=== PATIENT | male | born 1980 | race Caucasian/White ===

== ENCOUNTER 2016-07-11 10:27 | Emergency (ER) | payer SELFPAY ==
[~2016-07-11] VITALS: Ht 185.4 cm; Wt 90.0 kg
[~2016-07-11 10:27] MED LIST: BENT20TA PO; CYCL-36 PO; IBUP800T23 PO; PERC5TAB12 PO; PRED50 PO; PROM25TA5 PO
[2016-07-11 10:28] VITALS: BP 135/74; PULSE 118; RESP 20; TEMP 98.7; O2SAT 100
[2016-07-11] MEDS ORDERED: HYDR-3580 PO (12:45)
[2016-07-11] MEDS ORDERED: LIDOCAINE 1%/EPINEPHrine 1:100,000 SOLN 20 ML VIAL INFIL ONE (13:00)
[2016-07-11] MEDS ORDERED: VANCOMYCIN INJ 1,000 MG in SODIUM CHLOR 0.9% 250 ML INJ 250 ML IV ONE (13:00)
--- NOTE | 2016-07-11 13:14 | PD ---
HPI Chief Complaint: Skin Problem Time Seen by Provider: 12:42 Travel History International Travel<30 days: No Contact w/Intl Traveler<30days: No Traveled to known affect area: No History of Present Illness HPI He complains of an infection in his right arm. Duration 3 days. Symptoms are moderately severe. He has a large abscess there. He denies injecting that site. He has history of heroin abuse but says he hasn't used in 6 months. Denies active drainage or fever. No alleviating factors. PFSH Past Medical History Tetanus Vaccination: < 5 Years Past Surgical History Eye Surgery: Yes (right eye) Social History Alcohol Use: Yes Tobacco Use: Yes (1 ppd) Substance Use: No (denies, did have hx of) Allergies-Medications (Allergen,Severity, Reaction): Coded Allergies: No Known Allergies (Unverified , 03/19/16) Reported Meds & Prescriptions Reported Meds & Active Scripts Active Clindamycin (Clindamycin HCl) 150 Mg Cap 300 Mg PO Q6H Bactrim DS (Sulfamethoxazole-Trimethoprim) 800-160 Mg Tab 1 Tab PO BID Reported Hydrocodone-Acetaminophen 7.5-325 mg Tab 1 Tab PO DAILY PRN Review of Systems General / Constitutional: No: Fever Eyes: No: Visual changes HENT: No: Headaches Cardiovascular: No: Chest Pain or Discomfort Respiratory: No: Shortness of Breath Gastrointestinal: No: Abdominal Pain Genitourinary: No: Dysuria Musculoskeletal: Positive: Limited ROM, Pain Skin: No Rash Neurologic: No: Weakness Psychiatric: No: Depression Endocrine: No: Polydipsia Hematologic/Lymphatic: No: Easy Bruising Physical Exam Narrative GENERAL: Well-nourished, well-developed patient with right arm infection. SKIN: Focused skin assessment reveals no rash and nodules. Skin is Warm and dry. HEAD: Atraumatic. Normocephalic. EYES: Pupils equal and round. No scleral icterus. No injection or drainage. ENT: No nasal bleeding or discharge. Mucous membranes pink and moist. NECK: Trachea midline. No JVD. CARDIOVASCULAR: Regular rate and rhythm. No murmur appreciated. RESPIRATORY: No accessory muscle use. Clear to auscultation. Breath sounds equal bilaterally. GASTROINTESTINAL: Abdomen soft, non-tender, nondistended. Hepatic and splenic margins not palpable. MUSCULOSKELETAL: No obvious deformities. No clubbing. No cyanosis. No edema. He has a large abscess in the right antecubital fossa. It's warm and red and tender and appears fluctuant. NEUROLOGICAL: Awake and alert. No obvious cranial nerve deficits. Motor grossly within normal limits. Normal speech. PSYCHIATRIC: Appropriate mood and affect; insight and judgment normal. Data Data Last Documented VS Vital Signs Date Time Temp Pulse Resp B/P Pulse Ox O2 Delivery O2 Flow Rate FiO2 07/11/16 10:28 98.7 118 20 135/74 100 Room Air Orders Lidocai-Epi 1%-1:100,000 Inj (Xylocaine- (07/11/16 13:00) Iv Access Insert/Monitor (07/11/16 12:53) Complete Blood Count With Diff (07/11/16 12:53) Basic Metabolic Panel (Bmp) (07/11/16 12:53) Prothrombin Time / Inr (Pt) (07/11/16 12:53) Act Partial Throm Time (Ptt) (07/11/16 12:53) Wound Culture And Gram Stain (07/11/16 12:53) Vancomycin Inj (Vancomycin Inj) (07/11/16 13:00) Oxycodone-Acetamin 5-325 Mg (Percocet (07/11/16 14:30) Labs Laboratory Tests Test 07/11/16 13:20 White Blood Count 16.6 TH/MM3 Red Blood Count 4.52 MIL/MM3 Hemoglobin 13.5 GM/DL Hematocrit 39.4 % Mean Corpuscular Volume 87.0 FL Mean Corpuscular Hemoglobin 29.9 PG Mean Corpuscular Hemoglobin 34.3 % Concent Red Cell Distribution Width 14.2 % Platelet Count 473 TH/MM3 Mean Platelet Volume 7.3 FL Neutrophils (%) (Auto) 78.2 % Lymphocytes (%) (Auto) 10.7 % Monocytes (%) (Auto) 9.6 % Eosinophils (%) (Auto) 0.8 % Basophils (%) (Auto) 0.7 % Neutrophils # (Auto) 13.0 TH/MM3 Lymphocytes # (Auto) 1.8 TH/MM3 Monocytes # (Auto) 1.6 TH/MM3 Eosinophils # (Auto) 0.1 TH/MM3 Basophils # (Auto) 0.1 TH/MM3 CBC Comment DIFF FINAL Differential Comment Prothrombin Time 11.7 SEC Prothromb Time International 1.1 RATIO Ratio Activated Partial 33.7 SEC Thromboplast Time Sodium Level 139 MEQ/L Potassium Level 3.9 MEQ/L Chloride Level 104 MEQ/L Carbon Dioxide Level 26.0 MEQ/L Anion Gap 9 MEQ/L Blood Urea Nitrogen 8 MG/DL Creatinine 0.71 MG/DL Estimat Glomerular Filtration 127 ML/MIN Rate Random Glucose 97 MG/DL Calcium Level 9.4 MG/DL MDM Medical Decision Making Medical Screen Exam Complete: Yes Emergency Medical Condition: Yes Medical Record Reviewed: Yes Differential Diagnosis Abscess, cellulitis, boil Narrative Course I have reviewed the patient's electronic medical record. Patient was here 6 months ago for heroin related problems I and D performed by Neelam Dias IV placed I gave him 1 g IV vancomycin Wound Culture and Gram stain sent CBC shows leukocytosis of 16,000 Metabolic profile is normal Coagulation studies are normal I recommended admission for IV antibiotics given the extensive nature of this infection. Patient has thought about it and is declining my recommendation. He will sign out AGAINST MEDICAL ADVICE. I've asked him to return if he worsens or changes his mind. He is to call his family physician Dr. Mena and get a follow-up. I wrote him a course of Bactrim DS and clindamycin. Diagnosis Primary Impression: Abscess of right arm Additional Instructions: The patient was advised to follow up with their physician and return if they worsen. Remove packing in 2-3 days Med/Other Pt SpecificInfo: Prescription(s) given Scripts Clindamycin 150 Mg [id number] Mg PO Q6H #42 CAP Ref 0 Prov:Myron Ramirez MD 07/11/16 Sulfamethoxazole-Trimethoprim (Bactrim DS)800-160 Mg Tab1 Tab PO BID #20 TAB Ref 0 Prov:Myron Ramirez MD 07/11/16 Disposition: DISCHARGE HOME Condition: Stable Myron Ramirez MD Jul 11, 2016 13:14
--- NOTE | 2016-07-11 13:25 | PD ---
Physical Exam Date Seen by Provider: Jul 11, 2016 Time Seen by Provider: 13:17 Narrative I was asked by Dr. Ramirez to incise and drain abscess to the patient's right antecubital area. Please see his documentation for full history and physical. Data Data Last Documented VS Vital Signs Date Time Temp Pulse Resp B/P Pulse Ox O2 Delivery O2 Flow Rate FiO2 07/11/16 10:28 98.7 118 20 135/74 100 Room Air Orders Lidocai-Epi 1%-1:100,000 Inj (Xylocaine- (07/11/16 13:00) Iv Access Insert/Monitor (07/11/16 12:53) Complete Blood Count With Diff (07/11/16 12:53) Basic Metabolic Panel (Bmp) (07/11/16 12:53) Prothrombin Time / Inr (Pt) (07/11/16 12:53) Act Partial Throm Time (Ptt) (07/11/16 12:53) Wound Culture And Gram Stain (07/11/16 12:53) Vancomycin Inj (Vancomycin Inj) (07/11/16 13:00) MDM Supervised Visit with MYCHAL: No Procedures Procedure Narrative INCISION AND DRAINAGE OF ABSCESS: The area was prepped and was sterilely draped. A subcutaneous wheal of 1% Xylocaine with epinephrine with a total number 6 mL was used to anesthetize the area. The area was properly anesthetized. A number 11 scalpel was used to make a 1 -cm incision across the area of the abscess. Cultures were obtained. The abscess was drained an irrigated with normal saline. Quarter inch iodoform packing was placed in the wound. Sterile dressing applied. Patient advised to have packing removed in two days. Neelam Daniel Jul 11, 2016 13:25
[2016-07-11 13:37] LABS: BASOPHIL # 0.1 TH/MM3 (0-0.2); BASOPHIL % 0.7 % (0.0-2.0); EOSINOPHIL # 0.1 TH/MM3 (0-0.4); EOSINOPHIL % 0.8 % (0.0-4.0); HEMATOCRIT 39.4 % (39.0-51.0); HEMO FLAGS DIFF FINAL; LYMPH % 10.7 % (9.0-44.0); LYMPHOCYTE # 1.8 TH/MM3 (1.0-4.8); MEAN CORPUSCULAR HEMOGLOBIN 29.9 PG (27.0-34.0); MEAN CORPUSCULAR HGB CONC 34.3 % (32.0-36.0); MONO % 9.6 % (0.0-8.0); NEUT % 78.2 % (16.0-70.0); PLATELET COUNT 473 TH/MM3 (150-450); RED BLOOD COUNT 4.52 MIL/MM3 (4.50-5.90); RED CELL DISTRIBUTION WIDTH 14.2 % (11.6-17.2); WHITE BLOOD COUNT 16.6 TH/MM3 (4.0-11.0)
[2016-07-11 13:45] LABS: APTT (PATIENT) 33.7 SEC (24.3-30.1); INTERNATIONAL NORMALIZED RATIO 1.1 RATIO; PROTHROMBIN TIME - PATIENT 11.7 SEC (9.8-11.6)
[2016-07-11 13:57] LABS: POTASSIUM 3.9 MEQ/L (3.5-5.1)
[2016-07-11] MEDS ORDERED: CLIN1CAP5 PO ×2 (14:27→18:53)
[2016-07-11] MEDS ORDERED: BACT800T5 PO ×2 (14:27→18:53)
[2016-07-11] MEDS ORDERED: oxyCODONE/ACETAMINOPHEN 5 MG/325 MG TAB PO ONE (14:30)
== END 2016-07-11 17:37 | disposition left against medical advice (07) ==
LOC: NEPD 10:27
DX: L02.413 Cutaneous abscess of right upper limb (principal); F17.200 Nicotine dependence, unspecified, uncomplicated
CPT/HCPCS: 10061; 80048; 85025; 85610; 85730; 86403; 87070; 87185; 96365; 99283; J3370; J7050